=== PATIENT | female | born 1940 | race Caucasian/White ===

== ENCOUNTER 2016-05-01 19:20 | Emergency (ER) | payer MEDICARE ==
--- NOTE | ~2016-05-01 | CR230 ---
[facility] A Service of [facility] & [facility] RADIOLOGY TEXT RESULTS PATIENT: ROMEO WOODARD LOCATION: [facility] : 38 UNIT #: [id number] AGE: [address]: Miguel Avitia DO SEX: F ORDER DR: [id number] [facility] [address] [place], [place] [address] [id number] E MR#: [id number] Acc #: [id number] NAME: ROMEO WOODARD : 1940 SEX: F STUDY DATE/TIME: 05/01/2016 19:42 UNIT: AMOS ROOM: STUDY DESCRIPTION: CR Shoulder Min 2 View Rt Attending Physician: Miguel Avitia D.O. Ordering Physician: Miguel Avitia D.O. Primary Care Physician: Max BirminghamPAnkurRJacquie MEDICAL IMAGING REPORT This report is preliminary unless electronic signature is present EXAM Shoulder 2 views right HISTORY Right shoulder pain starting today after falling in the flower bed. History of COPD, decreased range of motion and pain right shoulder. COMMENT 3 views of the right shoulder are reviewed. There is degenerative change at the acromioclavicular joint. No acute fracture, dislocation or radiopaque foreign body. IMPRESSION Degenerative change right AC joint. No acute fracture, dislocation or radiopaque foreign body. Dictated by... Randi House M.D. THIS IS AN ELECTRONICALLY VERIFIED REPORT Randi House M.D. at 05/02/2016 12:19 PM [place] TD: 05/02/2016 11:23 JOB #: [id number] MEDICAL IMAGING REPORT Page 1 of 1 COPY
--- NOTE | ~2016-05-01 | CT57 ---
[facility] A Service of [facility] RADIOLOGY TEXT RESULTS PATIENT: ROMEO WOODARD LOCATION: [facility] : 38 UNIT #: [id number] AGE: [address]: Miguel Avitia DO SEX: F ORDER DR: [id number] [facility] [address] [place], [place] [address] [id number] E MR#: [id number] #: [id number] NAME: ROMEO WOODARD. : 1940 SEX: F STUDY DATE/TIME: 05/01/2016 20:10 UNIT: [facility] ROOM: STUDY DESCRIPTION: CT Chest Wo Cont Attending Physician: Miguel Avitia D.O. Ordering Physician: Miguel Avitia D.O. Primary Care Physician: Halina Damon A.P.R.N. MEDICAL IMAGING REPORT This report is preliminary unless electronic signature is present EXAM CT chest 05/01/2016 HISTORY Fall today, injury/pain left side chest, hypertension, COPD, gastro spot on kidney, cardiac, hysterectomy, back surgery x3, right shoulder, left ankle, gallbladder. TECHNIQUE CT chest performed without administration of intravenous contrast. This CT exam was performed with one or more of the following radiation dose reduction techniques: automatic exposure control, adjustment of mA and/or kV according to patient size, and iterative reconstruction. COMPARISON 03/21/2015 FINDINGS Visualized thyroid unremarkable. No axillary, mediastinal, or hilar adenopathy. Heart normal in size. Coronary arterial calcifications. No pleural effusions. Calcified granulomata in liver. Status post cholecystectomy. No biliary obstruction. Calcified granulomata in spleen. Pancreas, adrenal glands, unremarkable. 1 cm cyst upper pole left kidney. No clearly suspicious renal findings on this examination. No upper abdominal adenopathy. Esophagus, stomach, small bowel, and colon unremarkable in their visualized extent. Pulmonary parenchyma shows calcified granulomata bilaterally. Linear atelectasis or scarring at the left lung base. There is no evidence of acute infectious or inflammatory disease. No suspicious nodule. Unopacified vascular structures show atherosclerotic arterial calcifications. No aneurysm. Bony structures show no acute abnormality. There are degenerative changes in spine. No traumatic soft tissue body STS. [facility] A Service of [facility] RADIOLOGY TEXT RESULTS PATIENT: ROMEO WOODARD LOCATION: [facility] : 38 UNIT #: [id number] AGE: [address]: Miguel Avitia DO SEX: F ORDER DR: wall abnormality is seen. IMPRESSION 1. No acute abnormality is seen in the thorax. There is no evidence of traumatic soft tissue body wall abnormality. No fracture. 2. No acute pulmonary disease is seen. There is evidence of underlying mild emphysema. There is some minimal linear scarring or atelectasis at the left lung base. Calcified granulomata but no suspicious nodules. 3. Heart is normal in size. 4. Atherosclerotic calcifications in coronary and systemic arteries. 5. Visualized upper abdomen notable for postoperative changes of cholecystectomy. 1 cm cyst upper pole left kidney. Remainder of visualized upper abdomen unremarkable. Dictated by... Rory Quiroga M.D. THIS IS AN ELECTRONICALLY VERIFIED REPORT Rory Quiroga M.D. at 05/02/2016 2:18 PM KAROLINE/sheldon TD: 05/02/2016 11:48 JOB #: [id number] MEDICAL IMAGING REPORT Page 1 of 1 COPY
[~2016-05-01 19:20] MED LIST: ASPIRIN PO; ASPIRIN81 M2 PO; AZASITE2.5 ML OU; BAYER CHEWABLE81 MG PO; BENADRYL PO; BREO ELLIPTA 11 EACH INH; BREO ELLIPTA I1 EACH INH; BRIMONIDINE; CALAN-SR CAPL180 MG PO; CALAN40 MG PO; CELEXA20 MG PO; COVERA HS PO; CRANBERRY200 MG PO; CRANBERRY450 M1 PO; DEMEROL IV; DITROPAN5 MG DOB; DITROPAN5 MG PO; ENDOCET 5-3251 EACH PO; ESTRACE PO; GENTEAL15 ML OU; GINKGO BILOBA120 M1 PO; GINKGO BILOBA120 M2 PO; GINKGO60 MG PO; IRON1 TAB; IRON1 TAB PO; IRON45 MG PO; K-DUR20 ME1 DOB; K-DUR20 ME1 PO; KLONOPIN PO; KLONOPIN1 MG PO; LAMICTAL PO; LAMICTAL150 MG DOB; LAMOTRIGINE OD200 MG; LAMOTRIGINE200 MG PO; MAXZIDE-25 MG1 UDTAB PO; MONTELUKAST SOD10 MG PO; MORGIDOX100 MG PO; MULTI-VITAMIN1 TAB PO; MYSOLINE50 M1 PO; MYSOLINE50 MG DOB; MYSOLINE50 MG PO; NEURONTIN PO; NITROFURANTOIN50 M1 PO; OIL OF OREGAN1500 MG PO; POTASSIUM; PRILOSEC PO; PRILOSEC20 MG PO; PRILOSEC40 MG PO; REMERON PO; REMERON SOLTAB45 MG DOB; REMERON SOLTAB45 MG PO; REMERON45 MG PO; SINGULAIR PO; SPIRIVA18 MCG INH; SYSTANE GEL EYE10 ML OU; TRAZODONE PO; VERAPAMIL ER100 MG PO; VITAMIN B COMPLEX PO; VITAMIN D 22000 UNIT PO; VITAMIN D32000 UNI1 PO; ZANTAC PO; ZYRTEC10 M2 PO; [UNRECOGNIZED DRUG - MIXTURE] PO; [UNRECOGNIZED DRUG - OTHER] PO; [UNRECOGNIZED DRUG - OTHER] PO
[2016-05-01 23:14] LABS: POC - CKMB 6.4 ng/mL (0.0-7.9); POC - TROPONIN <0.05 ng/mL (<=0.05)
== END 2016-05-01 23:50 | disposition home or self-care (01) ==
LOC: CED 19:20
PROVIDERS: Emergency Medicine
DX: S20.212A Contusion of left front wall of thorax, initial encounter (principal); I25.10 Atherosclerotic heart disease of native coronary artery without angina pectoris; J44.9 Chronic obstructive pulmonary disease, unspecified; K21.9 Gastro-esophageal reflux disease without esophagitis; F41.9 Anxiety disorder, unspecified; F32.9 Major depressive disorder, single episode, unspecified; I10 Essential (primary) hypertension; W01.198A Fall on same level from slipping, tripping and stumbling with subsequent striking against other object, initial encounter; Y92.009 Unspecified place in unspecified non-institutional (private) residence as the place of occurrence of the external cause
CPT/HCPCS: 36415; 71250; 73030; 82553; 84484; 99284

== ENCOUNTER 2016-05-09 23:18 | Emergency (ER) | payer MEDICARE ==
--- NOTE | ~2016-05-09 | CT2 ---
[facility] A Service of [facility] RADIOLOGY TEXT RESULTS PATIENT: ROMEO WOODARD LOCATION: [facility] : 38 UNIT #: [id number] AGE: [address]: Xu Schaefer MD SEX: F ORDER DR: [id number] [facility] [address] [place], [place] [address] [id number] E MR#: [id number] Acc #: [id number] NAME: ROMEO WOODARD. : 1940 SEX: F STUDY DATE/TIME: 05/10/2016 0:53 UNIT: [facility] ROOM: STUDY DESCRIPTION: CT Abd and Pelv W Cont Attending Physician: Xu Schaefer M.D. Ordering Physician: Xu Schaefer M.D. Primary Care Physician: Halina Damon A.P.R.N. MEDICAL IMAGING REPORT This report is preliminary unless electronic signature is present EXAM Abdomen and pelvis CT with contrast, 05/10/2016 INDICATION Low abdominal pain intermittently for 5 years, recently also over the past 2 weeks. Painful urinary problems. TECHNIQUE Contrast-enhanced abdomen and pelvis CT was performed. COMPARISON 04/20/[address] exam was performed with one or more of the following radiation dose reduction techniques: automatic exposure control, adjustment of mA and/or kV according to patient size, and iterative reconstruction. FINDINGS CT ABDOMENM: Included lung bases demonstrate areas of atelectasis. There is no effusion or pneumonia. No pericardial effusion. Aorta demonstrates atherosclerotic change. There are granulomatous changes in the spleen. The adrenal glands are unremarkable. The pancreas is atrophic and the gallbladder is surgically absent. Liver unremarkable. There is cortical scarring of the kidneys. No hydronephrosis on either side. 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 Similar findings on the left. Incidental renal cysts. CT PELVIS: Bladder unremarkable. Uterus surgically absent. No drainable fluid collection in the pelvis. There is constipation. Appendix normal. Inguinal canal is unremarkable. No focal inflammatory change of the [facility] A Service of [facility] RADIOLOGY TEXT RESULTS PATIENT: ROMEO WOODARD LOCATION: [facility] : 38 UNIT #: [id number] AGE: [address]: Xu Schaefer MD SEX: F ORDER DR: bowel. There are degenerative changes in the lumbar spine. Posterior fusion hardware at L5-S1. IMPRESSION 1. No clearly acute process in the abdomen or pelvis. No bowel obstruction, drainable fluid collection or focal area of inflammatory change. Appendix normal. 2. Cortical scarring and cysts in both kidneys with partially duplicated urinary collecting systems bilaterally. No complicating features. 3. Surgical absence of the gallbladder and the uterus. Dictated by... Juve Flores M.D. THIS IS AN ELECTRONICALLY VERIFIED REPORT Juve Flores M.D. at 05/10/2016 6:21 AM CHET/isai TD: 05/10/2016 05:07 JOB #: [id number] MEDICAL IMAGING REPORT Page 1 of 1 COPY
--- NOTE | ~2016-05-09 | EKG ---
PATIENT: ROMEO WOODARD UNIT #: [id number] Ventricular Rate: 64 BPM Atrial Rate: 64 BPM P-R Interval: 176 ms QRS Duration: 128 ms Q-T Interval: 438 ms QTC Calculation(Bezet): 451 ms P Soquel: 46 degrees Calculated R Soquel: -37 degrees Calculated T Soquel: 42 degrees Diagnosis Line: Normal sinus rhythm Diagnosis Line: Left axis deviation Diagnosis Line: Left bundle branch block with repolarization Diagnosis Line: abnormality Diagnosis Line: Abnormal ECG Diagnosis Line: When compared with ECG of 28-JUL-2015 23:56, Diagnosis Line: No significant change was found Diagnosis Line: Confirmed by HANNA CARRILLO MD ([id number]) on 05/11/2016 Diagnosis Line: 2:15:34 PM INTERPRETING MD: GERARDO NAQVI
[2016-05-09 21:26] LABS: ALBUMIN SERUM 3.8 g/dL (3.5-5.0); BILIRUBIN,INDIRECT 0.1 mg/dL (0.0-0.9); BILIRUBIN,TOTAL 0.2 mg/dL (0.2-2.0); BUN/CREATININE RATIO 13.33; CALCIUM SERUM 8.8 mg/dL (8.4-10.2); CREATININE SERUM 0.9 mg/dL (0.6-1.4); GLOM FILT RATE Estimated 61.7 mL/min (>60); POTASSIUM 4.7 mmol/L (3.5-5.1); PROTEIN TOTAL SERUM 6.7 g/dL (6.0-8.3)
[2016-05-09 21:27] LABS: BILIRUBIN, DIRECT 0.1 mg/dL (0.0-0.2)
[2016-05-09 21:33] LABS: BASOPHIL% 0.8 % (0-2.5); EOSINOPHIL# 0.3 X10e3 (0-0.7); EOSINOPHIL% 4.1 % (0.0-7.0); HEMATOCRIT 35.5 % (35.0-45.0); HEMOGLOBIN 11.6 gm/dL (12.0-16.0); LYMPHOCYTE# 2.1 X10e3 (1.0-3.5); LYMPHOCYTE% 34.5 % (17.0-45.0); MEAN CELL VOLUME 92.6 FL (83-96); MEAN CORPUSCULAR HEMOGLOBIN 30.3 PG (28-34); MEAN CORPUSCULAR HGB CONC 32.7 g/dL (30-36); MEAN PLATELET VOLUME 7.9 FL (6.5-11.5); MONOCYTE# 0.5 X10e3 (0-1.0); MONOCYTE% 8.6 % (3.0-12.0); NEUTROPHIL# 3.2 X10e3 (1.5-7.1); PLATELET COUNT 217 X10e3 (140-420); RED BLOOD COUNT 3.83 X10e (3.90-5.30); RED CELL DISTRIBUTION WIDTH 13.6 % (11.0-15.5); WHITE BLOOD COUNT 6.1 X10e3 (4.0-10.5)
[2016-05-09 21:35] LABS: DIFF IND NO
[2016-05-09 23:30] LABS: URINE SOURCE CLEAN CATCH
[2016-05-09 23:35] LABS: URINE APPEARANCE CLEAR; URINE BLOOD NEG (NEG); URINE COLOR ORANGE; URINE GLUCOSE NEG (NEG); URINE KETONE NEG (NEG); URINE LEUKOCYTE ESTERASE 1+ (NEG); URINE NITRATE POS (NEG); URINE PROTEIN NEG (NEG)
[2016-05-09 23:37] LABS: URINE BACTERIA AUWI NEG (NEGATIVE); URINE SQUAMOUS EPITHELIAL CELL NONE SEEN /[HPF]
[2016-05-09 23:40] LABS: CULTURE INDICATED? NO; URINE BILIRUBIN NEG (NEG)
== END 2016-05-10 02:35 | disposition home or self-care (01) ==
LOC: CED 23:18
PROVIDERS: Emergency Medicine
DX: R10.31 Right lower quadrant pain (principal); K21.9 Gastro-esophageal reflux disease without esophagitis; I10 Essential (primary) hypertension; J44.9 Chronic obstructive pulmonary disease, unspecified; Z90.49 Acquired absence of other specified parts of digestive tract; Z90.710 Acquired absence of both cervix and uterus; Z88.2 Allergy status to sulfonamides; Z88.1 Allergy status to other antibiotic agents; Z91.012 Allergy to eggs; Z91.011 Allergy to milk products; Z88.5 Allergy status to narcotic agent
CPT/HCPCS: 36415; 74177; 80048; 80076; 81003; 82150; 83690; 85025; 93005; 99284; J2405; Q9967

== ENCOUNTER 2016-10-01 13:01 | Emergency (ER) | payer OTHER, MEDICARE ==
--- NOTE | ~2016-10-01 | CT101 ---
[facility] A Service of [facility] / [facility] RADIOLOGY TEXT RESULTS PATIENT: ROMEO WOODARD LOCATION: SED : 38 UNIT #: [id number] AGE: [address]: Yessy Gould SEX: F ORDER DR: [id number] [address] [address] [id number] E MR#: [id number] Acc #: [id number] NAME: ROMEO WOODARD : 1940 SEX: F STUDY DATE/TIME: 10/01/2016 13:30 UNIT: SED ROOM: STUDY DESCRIPTION: CT Maxillofacial Area Wo Cont Attending Physician: Yessy Gould Pa-C Ordering Physician: Yessy Gould Pa-C Primary Care Physician: Halina Damon A.P.R.N. MEDICAL IMAGING REPORT This report is preliminary unless electronic signature is present. EXAM CT face 10/01 INDICATIONS Fall at home today. Headache. Nose injury with nasal bleeding, and swelling and bruising. TECHNIQUE Axial images were obtained through the face without contrast. Coronal reformats were obtained. Comparison is made with 07/29/2015. This CT exam was performed with one or more of the following radiation dose reduction techniques: Automatic exposure control, adjustment of mA and/or kV according to patient size, and iterative reconstruction. FINDINGS No acute facial bone fractures are identified. There is no TMJ dislocation. There is nasal septal deviation to the right. Paranasal sinuses are clear. The globes are grossly normal. IMPRESSION No acute facial bone fractures. No significant change from 07/29/2015. Dictated by... Elpidio Jack Jr., M.D. THIS IS AN ELECTRONICALLY VERIFIED REPORT Elpidio Jack Jr., M.D. at 10/02/2016 7:57 AM RLK/miranda TD: 10/01/2016 23:33 [facility] A Service of [facility] RADIOLOGY TEXT RESULTS PATIENT: ROMEO WOODARD LOCATION: SED : 38 UNIT #: [id number] AGE: [address]: Yessy Gould SEX: F ORDER DR: JOB #: [id number] MEDICAL IMAGING REPORT Page 1 of 1
--- NOTE | ~2016-10-01 | CT52 ---
[facility] A Service of [facility] RADIOLOGY TEXT RESULTS PATIENT: ROMEO WOODARD LOCATION: SED : 38 UNIT #: [id number] AGE: [address]: Yessy Gould SEX: F ORDER DR: [id number] [address] [address] [id number] E MR#: [id number] Acc #: [id number] NAME: ROMEO WOODARD. : 1940 SEX: F STUDY DATE/TIME: 10/01/2016 13:31 UNIT: SED ROOM: STUDY DESCRIPTION: CT Cervical Spine Wo Cont Attending Physician: Yessy Gould Pa-C Ordering Physician: Yessy Gould Pa-C Primary Care Physician: Halina Damon A.P.R.N. MEDICAL IMAGING REPORT This report is preliminary unless electronic signature is present. EXAM CT scan of the cervical spine without contrast INDICATIONS Fall at home today with head injury and neck pain since fall. There is a comparison plain film series from 09/05/2016. There is a comparison CT scan 07/29/2015. TECHNIQUE Axial 2-mm images were obtained through the cervical spine and sagittal and coronal reconstructions were generated. This CT exam was performed with one or more of the following radiation dose reduction techniques: Automatic exposure control, adjustment of mA and/or kV according to patient size, and iterative reconstruction. FINDINGS The vertebral bodies have normal alignment. There is no fracture. There is mild disc space narrowing at C5-6 and C6-7. IMPRESSION Stable mild degenerative changes mid cervical spine. No evidence of acute injury. Dictated by... Arun Becker M.D. THIS IS AN ELECTRONICALLY VERIFIED REPORT Arun Becker M.D. at 10/02/2016 1:36 PM FEL/[facility] A Service of [facility] RADIOLOGY TEXT RESULTS PATIENT: ROMEO WOODARD LOCATION: SED : 38 UNIT #: [id number] AGE: [address]: Yessy Gould SEX: F ORDER DR: TD: 10/01/2016 23:38 JOB #: [id number] MEDICAL IMAGING REPORT Page 1 of 1
--- NOTE | ~2016-10-01 | CT71 ---
[facility] A Service [facility] RADIOLOGY TEXT RESULTS PATIENT: ROMEO WOODARD LOCATION: SED : 38 UNIT #: [id number] AGE: [address]: Yessy Gould SEX: F ORDER DR: [id number] [address] [address] [id number] E MR#: [id number] Acc #: [id number] NAME: ROMEO WOODARD. : 1940 SEX: F STUDY DATE/TIME: 10/01/2016 13:25 UNIT: SED ROOM: STUDY DESCRIPTION: CT Head Wo Contrast Attending Physician: Yessy Gould Pa-C Ordering Physician: Yessy Gould Pa-C Primary Care Physician: Halina Damon A.P.R.N. MEDICAL IMAGING REPORT This report is preliminary unless electronic signature is present. EXAM Noncontrast CT head 10/01/2016 HISTORY 76-year-old female who fell today with posterior pain, headache, nose injury with bleeding, laceration with bruising. COMPARISON Noncontrast CT head and 07/29/2015. TECHNIQUE This CT exam was performed with one or more of the following radiation dose reduction techniques: automatic exposure control, adjustment of mA and/or kV according to patient size, and iterative reconstruction. FINDINGS No acute nasal bone fracture is seen. There is no acute calvarial fracture. Minimal left ethmoid sinus mucosal thickening. Mastoid air cells are clear. No acute intracranial hemorrhage, mass lesion, mass effect or midline shift is seen. Nonspecific areas of hypodensity are scattered throughout the deep white matter of the brain which are nonspecific but favored to represent changes of chronic microvascular disease. There is a chronic-appearing lacunar infarct in the left basal ganglia anteriorly. Chronic right base lacunar infarcts as well. Moderate intracranial coronary artery calcifications. IMPRESSION 1. Moderate chronic microvascular disease changes with chronic-appearing lacunar infarcts in the bilateral basal ganglia. 2. Mild generalized atrophy. 3. No acute intracranial findings. [facility] A Service [facility] RADIOLOGY TEXT RESULTS PATIENT: ROMEO WOODARD LOCATION: SED : 38 UNIT #: [id number] AGE: [address]: Yessy Gould SEX: F ORDER DR: Dictated by... Talita Hand M.D. THIS IS AN ELECTRONICALLY VERIFIED REPORT Talita Hand M.D. at 10/04/2016 8:52 AM АНДРЕЙ/jun TD: 10/01/2016 23:11 JOB #: [id number] MEDICAL IMAGING REPORT Page 1 of 1
== END 2016-10-01 14:00 | disposition home or self-care (01) ==
LOC: SED 13:01
DX: S00.33XA Contusion of nose, initial encounter (principal); I10 Essential (primary) hypertension; K21.9 Gastro-esophageal reflux disease without esophagitis; J44.9 Chronic obstructive pulmonary disease, unspecified; W18.09XA Striking against other object with subsequent fall, initial encounter; Y92.009 Unspecified place in unspecified non-institutional (private) residence as the place of occurrence of the external cause
CPT/HCPCS: 70450; 70486; 72125; 99283